=== PATIENT | female | born 1975 | race Caucasian/White ===

== ENCOUNTER 2019-03-12 23:30 | Emergency (ER) | payer OTHER ==
[~2019-03-12] VITALS: Ht 160 cm; Wt 54.4 kg
[~2019-03-12 23:30] MED LIST: ANUSOL-HC25 MG RECTAL; MIRALAX255 GM PO
[2019-03-13] VITALS: BP 154/85
[2019-03-13] MEDS ORDERED: BENADRYL25 MG PO (00:32)
[2019-03-13] MEDS ORDERED: CORTIZONE-10 PL28 GM TOP (00:32)
[2019-03-13] MEDS ORDERED: VALTREX1000 MG PO (00:32)
[2019-03-13] MEDS ORDERED: OCUFLOX5 ML OPHTHALMIC (00:32)
[2019-03-13] MEDS ORDERED: KEFLEX500 M1 PO (00:32)
[2019-03-13] MEDS ORDERED: DOXYCYCLINE 10100 MG PO (00:32)
== END 2019-03-13 01:35 | disposition home or self-care (01) ==
LOC: ER 23:30
DX: L25.9 Unspecified contact dermatitis, unspecified cause (principal); B00.1 Herpesviral vesicular dermatitis; L08.89 Other specified local infections of the skin and subcutaneous tissue; H66.91 Otitis media, unspecified, right ear; G43.909 Migraine, unspecified, not intractable, without status migrainosus; F17.210 Nicotine dependence, cigarettes, uncomplicated; Z88.0 Allergy status to penicillin

== ENCOUNTER 2019-03-22 23:39 | Emergency (ER) | payer OTHER ==
[~2019-03-22] VITALS: Ht 160 cm; Wt 54.4 kg
[~2019-03-22 23:39] MED LIST changes: +BENADRYL25 MG PO; +CORTIZONE-10 PL28 GM TOP; +DOXYCYCLINE 10100 MG PO; +KEFLEX500 M1 PO; +OCUFLOX5 ML OPHTHALMIC; +VALTREX1000 MG PO
[2019-03-23] MEDS ORDERED: KEFLEX500 M1 PO (01:37)
[2019-03-23] MEDS ORDERED: IBUPROFEN 600600 M1 PO (01:37)
[2019-03-23 02:09] VITALS: BP 124/82
== END 2019-03-23 02:10 | disposition home or self-care (01) ==
LOC: ER 23:39
DX: A46 Erysipelas (principal); G43.909 Migraine, unspecified, not intractable, without status migrainosus; F17.210 Nicotine dependence, cigarettes, uncomplicated; Z88.0 Allergy status to penicillin

== ENCOUNTER 2020-01-12 08:33 | Emergency (ER) | payer OTHER ==
[~2020-01-12] VITALS: Ht 160 cm; Wt 54.4 kg
[~2020-01-12 08:33] MED LIST changes: +IBUPROFEN 600600 M1 PO
[2020-01-12] MEDS ORDERED: MEDROLDOSEPACK PO (09:30)
[2020-01-12] MEDS ORDERED: NAPROSYN500 MG PO (09:30)
[2020-01-12] MEDS ORDERED: FLEXERIL PO (09:30)
[2020-01-12 10:05] VITALS: BP 163/114
== END 2020-01-12 10:06 | disposition home or self-care (01) ==
LOC: ER 08:33
DX: S46.812A Strain of other muscles, fascia and tendons at shoulder and upper arm level, left arm, initial encounter (principal); G43.909 Migraine, unspecified, not intractable, without status migrainosus; F17.210 Nicotine dependence, cigarettes, uncomplicated; Z79.2 Long term (current) use of antibiotics; Z79.899 Other long term (current) drug therapy; Z88.0 Allergy status to penicillin; W22.8XXA Striking against or struck by other objects, initial encounter; Y93.89 Activity, other specified; Y92.89 Other specified places as the place of occurrence of the external cause; Y99.8 Other external cause status